=== PATIENT | male | born 1945 | race Caucasian/White ===

== ENCOUNTER 2019-04-07 09:32 | Outpatient (CLI) | payer MEDICARE, OTHER, SELFPAY ==
[2019-04-07 09:58] LABS: Basophils % 0.3 %; Eosinophils % 0.6 %; Hematocrit 35.3 % (42.0-52.0); Hemoglobin 11.4 g/dL (11.7-16.6); Lymphocytes # 1.1 10^3/uL (0.8-4.8); Lymphocytes % 15.6 %; Mean Corpuscular HGB Conc 32.3 g/dL (30.0-36.0); Mean Corpuscular Hemoglobin 29.2 pg (28.0-34.0); Mean Corpuscular Volume 90.3 fL (80-94); Mean Platelet Volume 8.7 fL (7.4-10.4); Monocytes # 0.7 10^3/uL (0.2-0.9); Monocytes % 9.1 %; Neutrophils # 5.4 10^3/uL (1.8-7.7); Neutrophils % 74.1 %; Nucleated Red Blood Cells % 0 %; Platelet Count 308 10^3/cmm (130-400); Red Blood Count 3.91 10^6/uL (4.1-5.3); Red Cell Distribution Width 11.9 % (12.1-15.1); White Blood Count 7.2 10^3/uL (4.0-10.0)
[2019-04-07 14:03] LABS: Vitamin B12 535 pg/mL (232-1245)
[2019-04-07 14:14] LABS: Folate Level 17.1 ng/mL (4.5-32.2)
== END 2019-04-07 09:33 | disposition home or self-care (01) ==
LOC: ONCMED 09:37
PROVIDERS: Family Provider Family Medicine; PCP Family Medicine; Referring Provider Family Medicine; Visit Provider Internal Medicine Hematology & Oncology
DX: D50.9 Iron deficiency anemia, unspecified (principal); I49.9 Cardiac arrhythmia, unspecified; Z79.01 Long term (current) use of anticoagulants
CPT/HCPCS: 82607; 82746; 85025; 99204

== ENCOUNTER 2019-04-21 05:45 | Outpatient (RCR) | payer MEDICARE, OTHER, SELFPAY | END 2019-05-08 23:59 | disposition home or self-care (01) | LOC: ONCMED 05:45 | PROVIDERS: Family Provider Family Medicine; PCP Family Medicine; Visit Provider Internal Medicine Hematology & Oncology | DX: D50.9 Iron deficiency anemia, unspecified (principal) | CPT/HCPCS: 96365; J1439 ==

== ENCOUNTER 2019-05-21 05:43 | Outpatient (RCR) | payer MEDICARE, OTHER, SELFPAY ==
[2019-05-19 11:01] LABS: Basophils % 0.1 %; Eosinophils # 0.1 10^3/uL (0.0-0.8); Eosinophils % 0.9 %; Hemoglobin 12.3 g/dL (11.7-16.6); Lymphocytes # 1.2 10^3/uL (0.8-4.8); Lymphocytes % 18.2 %; Mean Corpuscular HGB Conc 32.4 g/dL (30.0-36.0); Mean Corpuscular Volume 95.7 fL (80-94); Mean Platelet Volume 8.8 fL (7.4-10.4); Monocytes # 0.6 10^3/uL (0.2-0.9); Monocytes % 9.1 %; Neutrophils # 4.9 10^3/uL (1.8-7.7); Neutrophils % 71.6 %; Nucleated Red Blood Cells % 0 %; Platelet Count 316 10^3/cmm (130-400); Red Blood Count 3.97 10^6/uL (4.1-5.3); Red Cell Distribution Width 12.9 % (12.1-15.1); White Blood Count 6.8 10^3/uL (4.0-10.0)
[2019-05-19 11:16] LABS: Ferritin 868 ng/mL (30-400); Iron 69 ug/dL (59-158); Percent Saturation 37.5 % (20-50); Total Iron Binding Capacity 184 mcg/dl; Unsaturated Iron Binding 115 ug/dL (112-347)
--- NOTE | 2019-05-21 11:05 | ONC FU_ITS ---
Dr. Evans follow up note Patient: Omar Francois Unit #: [id number]: 1945 Dicatated By: Sanchez Evans M.D.Date of Visit:May 21, 2019 Onc Med Follow-up/Prog Note History of Present Illness: Mr. Omar Francois, is a 73-year-old gentleman with history of borderline anemia for 3-4 years, never required blood transfusion but he was started on oral iron about years ago, as per patient, his colonoscopy and EGD done in 2016 was unremarkable. He has been tolerate oral iron well but without normalization of his hemoglobin. As per patient, labs done on 03/17/2019 showed white blood count 7.3 hemoglobin 11.2 crit 33.2 platelets 344,000 MCV 88.1, compared to hemoglobin 11.7 g earlier , he was advised to increase his iron supplements to twice a day instead of once a day.as his iron was 38 normal being 50-180, iron saturation was 16% normal being 20-48% but ferritin was 302. Patient is on anticoagulation for cardiac arrhythmia more than 2 years now. Denies any melena or hematochezia but darker stools probably due to iron supplements. Denies any hemoptysis or hematemesis, denies any heartburn indigestion denies any chest pain or palpitation. Denies any weight loss, denies any jaundice denies any hematuria or dysuria. Denies any peripheral lymphadenopathy denies any night sweats, or recurrent fever. Came for follow-up, denies any specific complaint, more energetic since iron infusion, no shortness of breath no fever no chills, no palpitation no diarrhea constipation. Tolerated Injectafer well. Medications: amLODIPine Besylate 1 Tablet (of 2.5 mg) Oral daily, Eliquis 1 Tablet (of 5 mg) Oral b.i.d., Famotidine 1 Tablet (of 20 mg) Oral daily, Metoprolol Tartrate 1 Tablet (of 25 mg) Oral daily, Multivitamin Adult 1 Tablet Oral daily, Telmisartan 1 Tablet (of 40 mg) Oral daily Allergies: No Known Allergies. Review of Systems: Review of Systems is not available for this patient. Vital Signs: Performed on May 21, 2019 10:45 Height - 72.00 in Weight - 167.8 lbs (HIGH) BSA - 1.98 sq.m BMI - 22.76 Temperature - 97.4 F (LOW) Pulse - 74 /min Respiration - 18 /min BP - 114/70 mm(hg) O2 Sat - 100 % Pain - 0 Performance Status: 0 - Fully active, able to carry on all predisease activities without restrictions. (ECOG) Physical Examination: ENMT - No oral exudates, ulcers, masses, thrush or mucositis. Oropharynx clear. Tongue normal, Respiratory - Lungs are clear to auscultation without rhonchi or wheezing, Cardiovascular - Regular rate and rhythm of heart, Abdomen - Non-tender, non-distended, Good bowel sounds. No guarding or rebound tenderness. No pulsatile masses, Extremities - no edema. Lab/Imaging: Test performed on Apr 07, 2019 09:45 Vitamin B12 535 pg/mL WBC 7.2 10 3/uL RBC 3.91 10 6/uL HGB 11.4 g/dL HCT 35.3 % MCV 90.3 fL MCH 29.2 pg MCHC 32.3 g/dL RDW 11.9 % Platelet Count 308 10 3/cmm MPV 8.7 fL Neutrophils 5.4 10 3/uL Lymphocytes 1.1 10 3/uL Monocytes 0.7 10 3/uL Eosinophils 0.0 10 3/uL Basophils 0.0 10 3/uL Neutrophil % 74.1 % Lymphocyte % 15.6 % Monocyte % 9.1 % Eosinophil % 0.6 % Basophils % 0.3 % Impression: Iron deficiency anemia, etiology could be multifactorial including chronic blood loss especially on chronic anticoagulation, his EGD and colonoscopy was normal in 2017 so source could be small bowel, considering his age small bowel AVMs is a common finding. Other possibility could be iron malabsorption as patient is on oral iron for more than one year without normalization of iron stores. Cardiac arrhythmia on anticoagulation Plan: Discussed with patient regarding his labs white blood count 8.8 hemoglobin 12.3 crit 38 platelets 316,000 iron saturation 37.5 ferritin 868, iron 69, TIBC 184. Clinically, patient is doing well, more energetic since Injectafer infusion, responded very well,as his follow-up lab shows normalization of hemoglobin and improvement in iron stores. At this point we'll continue to monitor she'll return to clinic in 2 months with CBC and iron studies Signed By: Sanchez Evans M.D. <<Signature on File>>
== END 2019-06-08 23:59 | disposition home or self-care (01) ==
LOC: ONCMED 05:43
PROVIDERS: Family Provider Family Medicine; PCP Family Medicine; Visit Provider Internal Medicine Hematology & Oncology
DX: D50.9 Iron deficiency anemia, unspecified (principal); I49.9 Cardiac arrhythmia, unspecified; Z79.01 Long term (current) use of anticoagulants; Z79.899 Other long term (current) drug therapy
CPT/HCPCS: 82728; 83540; 83550; 85025; G0463

== ENCOUNTER 2019-07-21 10:28 | Outpatient (CLI) | payer MEDICARE, OTHER, SELFPAY ==
[2019-07-21 11:14] LABS: Ferritin 830 ng/mL (30-400); Iron 96 ug/dL (59-158); Percent Saturation 52.7 % (20-50); Total Iron Binding Capacity 182 mcg/dl; Unsaturated Iron Binding 86 ug/dL (112-347)
[2019-07-21 11:21] LABS: Basophils % 0.4 %; Eosinophils # 0.1 10^3/uL (0.0-0.8); Eosinophils % 0.6 %; Hematocrit 38.6 % (42.0-52.0); Hemoglobin 12.5 g/dL (11.7-16.6); Lymphocytes # 1.6 10^3/uL (0.8-4.8); Lymphocytes % 18.8 %; Mean Corpuscular HGB Conc 32.4 g/dL (30.0-36.0); Mean Corpuscular Hemoglobin 31.6 pg (28.0-34.0); Mean Corpuscular Volume 97.7 fL (80-94); Mean Platelet Volume 8.8 fL (7.4-10.4); Monocytes # 0.9 10^3/uL (0.2-0.9); Neutrophils # 5.9 10^3/uL (1.8-7.7); Neutrophils % 69.8 %; Nucleated Red Blood Cells % 0 %; Platelet Count 302 10^3/cmm (130-400); Red Blood Count 3.95 10^6/uL (4.1-5.3); Red Cell Distribution Width 11.9 % (12.1-15.1); White Blood Count 8.5 10^3/uL (4.0-10.0)
== END 2019-07-21 10:29 | disposition home or self-care (01) ==
LOC: ONCMED 10:31
PROVIDERS: PCP Family Medicine; Visit Provider Internal Medicine Hematology & Oncology
DX: D50.9 Iron deficiency anemia, unspecified (principal)
CPT/HCPCS: 82728; 83540; 83550; 85025

== ENCOUNTER 2019-07-23 09:48 | Outpatient (CLI) | payer MEDICARE, OTHER, SELFPAY ==
--- NOTE | 2019-08-23 16:08 | ONC FU_ITS ---
Dr. Evans follow up note Patient: Omar Francois Unit #: [id number]: 1945 Dicatated By: Sanchez Evans M.D.Date of Visit:July 23, 2019 Onc Med Follow-up/Prog Note History of Present Illness: Mr. Omar Francois, is a 73-year-old gentleman with history of borderline anemia for 3-4 years, never required blood transfusion but he was started on oral iron about years ago, as per patient, his colonoscopy and EGD done in 2016 was unremarkable. He has been tolerate oral iron well but without normalization of his hemoglobin. As per patient, labs done on 03/17/2019 showed white blood count 7.3 hemoglobin 11.2 crit 33.2 platelets 344,000 MCV 88.1, compared to hemoglobin 11.7 g earlier , he was advised to increase his iron supplements to twice a day instead of once a day.as his iron was 38 normal being 50-180, iron saturation was 16% normal being 20-48% but ferritin was 302. Patient is on anticoagulation for cardiac arrhythmia more than 2 years now. Denies any melena or hematochezia but darker stools probably due to iron supplements. Denies any hemoptysis or hematemesis, denies any heartburn indigestion denies any chest pain or palpitation. Denies any weight loss, denies any jaundice denies any hematuria or dysuria. Denies any peripheral lymphadenopathy denies any night sweats, or recurrent fever. Came for follow-up, denies any specific complaints, no fever or chills, no nausea or vomiting, no diarrhea constipation, no melena or hematochezia. No shortness of breath or palpitation. Medications: amLODIPine Besylate 1 Tablet (of 2.5 mg) Oral daily, Eliquis 1 Tablet (of 5 mg) Oral b.i.d., Famotidine 1 Tablet (of 20 mg) Oral daily, Metoprolol Tartrate 1 Tablet (of 25 mg) Oral daily, Multivitamin Adult 1 Tablet Oral daily, Telmisartan 1 Tablet (of 40 mg) Oral daily Allergies: No Known Allergies. Review of Systems: Review of Systems is not available for this patient. Vital Signs: Performed on July 23, 2019 10:15 Height - 72.00 in Weight - 168.6 lbs (HIGH) BSA - 1.98 sq.m BMI - 22.87 Temperature - 97.9 F (LOW) Pulse - 70 /min Respiration - 18 /min BP - 123/73 mm(hg) O2 Sat - 98 % Pain - 0 Performance Status: 0 - Fully active, able to carry on all predisease activities without restrictions. (ECOG) Physical Examination: ENMT - no mouth sores,, Respiratory - clear to auscultation, Cardiovascular - Regular rate and rhythm of heart, Abdomen - soft, bowel sounds present, Extremities - no edema or rash. Lab/Imaging: Test performed on July 21, 2019 10:39 Ferritin 830 ng/mL Iron 96 mcg/dL Iron Binding Capacity (TIBC) 182 mcg/dl % Iron Saturation 52.7 % UIBC 86 mcg/dL WBC 8.5 10 3/uL RBC 3.95 10 6/uL HGB 12.5 g/dL HCT 38.6 % MCV 97.7 fL MCH 31.6 pg MCHC 32.4 g/dL RDW 11.9 % Platelet Count 302 10 3/cmm MPV 8.8 fL Neutrophils 5.9 10 3/uL Lymphocytes 1.6 10 3/uL Monocytes 0.9 10 3/uL Eosinophils 0.1 10 3/uL Basophils 0.0 10 3/uL Neutrophil % 69.8 % Lymphocyte % 18.8 % Monocyte % 10.0 % Eosinophil % 0.6 % Basophils % 0.4 % Test performed on Apr 07, 2019 09:45 Vitamin B12 535 pg/mL Impression: Iron deficiency anemia, etiology could be multifactorial including chronic blood loss especially on chronic anticoagulation, his EGD and colonoscopy was normal in 2017 so source could be small bowel, considering his age small bowel AVMs is a common finding. Other possibility could be iron malabsorption as patient is on oral iron for more than one year without normalization of iron stores. Cardiac arrhythmia on anticoagulation Plan: Discussed with patient regarding his labs white blood count 8.5 and on 12.5 crit 38.6 platelets 302,000 iron saturation 52.7 ferritin 830, iron 96 Clinically, patient is doing well with no new signs symptoms, his follow-up lab shows hemoglobin and iron stores within normal range, we'll continue to monitor and return to clinic in 3 months with CBC and iron studies if hemoglobin and iron stores remains within normal range then subsequently we'll see him on as-needed basis. Signed By: Sanchez Evans M.D. <<Signature on File>>
== END 2019-07-23 09:49 | disposition home or self-care (01) ==
PROVIDERS: PCP Family Medicine; Visit Provider Internal Medicine Hematology & Oncology
DX: D50.9 Iron deficiency anemia, unspecified (principal); I49.9 Cardiac arrhythmia, unspecified; Z79.01 Long term (current) use of anticoagulants
CPT/HCPCS: G0463

== ENCOUNTER 2019-10-22 08:47 | Outpatient (CLI) | payer MEDICARE, OTHER, SELFPAY ==
[2019-10-22 09:08] LABS: Basophils % 0.2 %; Eosinophils # 0.1 10^3/uL (0.0-0.8); Eosinophils % 0.6 %; Hematocrit 36.3 % (42.0-52.0); Hemoglobin 12.1 g/dL (11.7-16.6); Lymphocytes # 1.7 10^3/uL (0.8-4.8); Lymphocytes % 18.7 %; Mean Corpuscular HGB Conc 33.3 g/dL (30.0-36.0); Mean Corpuscular Hemoglobin 31.8 pg (28.0-34.0); Mean Corpuscular Volume 95.3 fL (80-94); Mean Platelet Volume 8.6 fL (7.4-10.4); Monocytes # 0.6 10^3/uL (0.2-0.9); Monocytes % 6.5 %; Neutrophils # 6.68 10^3/uL (1.8-7.7); Neutrophils % 73.7 %; Nucleated Red Blood Cells % 0 %; Platelet Count 342 10^3/cmm (130-400); Red Blood Count 3.81 10^6/uL (4.1-5.3); Red Cell Distribution Width 11.4 % (12.1-15.1); White Blood Count 9.1 10^3/uL (4.0-10.0)
[2019-10-22 09:32] LABS: Ferritin 974 ng/mL (30-400); Iron 64 ug/dL (59-158); Percent Saturation 30.7 % (20-50); Total Iron Binding Capacity 208 mcg/dl; Unsaturated Iron Binding 144 ug/dL (112-347)
[2019-10-22 09:48] LABS: Vitamin B12 874 pg/mL (232-1245)
[2019-10-22 10:20] LABS: Folate Level > 20.0 ng/mL (4.5-32.2)
--- NOTE | 2019-10-25 09:47 | ONC FU_ITS ---
Dr. Evans follow up note Patient: Omar Francois Unit #: [id number]: 1945 Dicatated By: Sanchez Evans M.D.Date of Visit:Oct 22, 2019 Onc Med Follow-up/Prog Note History of Present Illness: Mr. Omar Francois, is a 73-year-old gentleman with history of borderline anemia for 3-4 years, never required blood transfusion but he was started on oral iron about years ago, as per patient, his colonoscopy and EGD done in 2016 was unremarkable. He has been tolerate oral iron well but without normalization of his hemoglobin. As per patient, labs done on 03/17/2019 showed white blood count 7.3 hemoglobin 11.2 crit 33.2 platelets 344,000 MCV 88.1, compared to hemoglobin 11.7 g earlier , he was advised to increase his iron supplements to twice a day instead of once a day.as his iron was 38 normal being 50-180, iron saturation was 16% normal being 20-48% but ferritin was 302. Patient is on anticoagulation for cardiac arrhythmia more than 2 years now. Came for follow-up, denies any specific complaints, no fever chills, no nausea or vomiting, no diarrhea or constipation, no palpitation or shortness of breath, no melena or hematochezia, overall feeling well Medications: Eliquis 1 Tablet (of 5 mg) Oral b.i.d., Famotidine 1 Tablet (of 20 mg) Oral daily, Metoprolol Tartrate 1 Tablet (of 25 mg) Oral daily, Multivitamin Adult 1 Tablet Oral daily Allergies: No Known Allergies. Review of Systems: Constitutional - Appetite is good but weight has decreased. No fever, chills, hot flashes, or night sweats. Energy level is poor, ENMT - No sinus congestion/drainage. No mouth sores. No sore throat or difficulty swallowing, Hematologic/Lymphatic - Pt reports that he bruises easily, Respiratory - No shortness of breath. No cough. No pleuritic pain or hemoptysis, Cardiovascular - No angina pain. No palpitations, Gastrointestinal - No nausea or vomiting. No heartburn or acid reflux. No diarrhea or constipation. No blood in the stool or black stools, Genitourinary (M) - No dysuria or hematuria. No urinary frequency. No urgency or incontinence, Musculoskeletal - No joint or bone pain, Neurologic - No headache or dizziness. No numbness/paresthesias or other focal neurologic symptoms, Psychiatric - No anxiety or depression. No insomnia. Vital Signs: Performed on Oct 22, 2019 10:31 Height - 72.00 in Weight - 169.8 lbs (HIGH) BSA - 1.99 sq.m BMI - 23.03 Temperature - 98.1 F (LOW) Pulse - 66 /min Respiration - 20 /min BP - 143/80 mm(hg) (HIGH) O2 Sat - 99 % Pain - 0 Performance Status: 0 - Fully active, able to carry on all predisease activities without restrictions. (ECOG) Physical Examination: ENMT - No mouth sores, no thrush, no jaundice, Respiratory - Lungs are clear, Cardiovascular - Regular rate and rhythm of heart, Abdomen - Soft, bowel sounds present, Extremities - No visible edema. Lab/Imaging: Test performed on July 21, 2019 10:39 Ferritin 830 ng/mL Iron 96 mcg/dL Iron Binding Capacity (TIBC) 182 mcg/dl % Iron Saturation 52.7 % UIBC 86 mcg/dL WBC 8.5 10 3/uL RBC 3.95 10 6/uL HGB 12.5 g/dL HCT 38.6 % MCV 97.7 fL MCH 31.6 pg MCHC 32.4 g/dL RDW 11.9 % Platelet Count 302 10 3/cmm MPV 8.8 fL Neutrophils 5.9 10 3/uL Lymphocytes 1.6 10 3/uL Monocytes 0.9 10 3/uL Eosinophils 0.1 10 3/uL Basophils 0.0 10 3/uL Neutrophil % 69.8 % Lymphocyte % 18.8 % Monocyte % 10.0 % Eosinophil % 0.6 % Basophils % 0.4 % Impression: Iron deficiency anemia, etiology could be multifactorial including chronic blood loss especially on chronic anticoagulation, his EGD and colonoscopy was normal in 2017 so source could be small bowel, considering his age small bowel AVMs is a common finding. Other possibility could be iron malabsorption as patient is on oral iron for more than one year without normalization of iron stores. Status post Injectafer 750 mg IV weekly x2 in April 2019 With excellent response, normalization of hemoglobin and iron stores Cardiac arrhythmia on anticoagulation Plan: Discussed with patient regarding his labs white blood count 9.1 hemoglobin 12.1 hematocrit 36.3 platelets 342,000 iron saturation 30.7 ferritin 974 iron 64 B12 874 Clinically, patient is doing well with no new signs symptoms, follow-up labs shows hemoglobin still in the normal range as well as iron stores, no further work-up, will see him on as-needed basis Signed By: Sanchez Evans M.D. <<Signature on File>>
== END 2019-10-22 08:48 | disposition home or self-care (01) ==
LOC: ONCMED 08:49
PROVIDERS: PCP Family Medicine; Visit Provider Internal Medicine Hematology & Oncology
DX: D50.9 Iron deficiency anemia, unspecified (principal); Z79.01 Long term (current) use of anticoagulants; I49.9 Cardiac arrhythmia, unspecified
CPT/HCPCS: 82607; 82728; 82746; 83540; 83550; 85025; G0463

== ENCOUNTER → 2021-03-01 11:25 | Outpatient (BNVA) | payer MEDICARE, OTHER, SELFPAY | PROVIDERS: PCP Family Medicine; Visit Provider Otolaryngology | DX: Z01.812 Encounter for preprocedural laboratory examination (principal) | CPT/HCPCS: 87635 ==

== ENCOUNTER 2021-03-07 07:41 | Day surgery (SDC) | payer MEDICARE, OTHER, SELFPAY ==
[2021-03-06 10:02] VITALS: BMI 23.0
[2021-03-07] VITALS (8 sets, daily range): BP systolic 139–179; BP diastolic 82–106; PULSE 68–81; RESP 12–18; TEMP 36.1–36.8; O2SAT 94–99
--- NOTE | 2021-03-07 08:07 | ECG_ITS ---
[facility] Test Date: 2021-03-07 Pat Name: Omar Francois Department: Room: Gender: Male Cig[employer]cher: : 1945 Requested By: Bryce Wilcox Order Number: [id number] Rickie MD: Melchor Pepe M.D. Measurements Intervals [place] Rate: 64 P: 61 [place]: 164 QRS: 48 QRSD: 106 T: 15 QT: 398 QTc: 413 Interpretive Statements SINUS RHYTHM Compared to ECG 06/01/2017 12:46:09 Prolonged QT interval no longer present Electronically Signed On 03-07-2021 20:47:37 [employer]PER[employer] by Melchor Pepe M.D. [id number]
[2021-03-07] MEDS: sodium chloride 0.9% 1,000 ML 30 ML IV (08:15)
--- NOTE | 2021-03-07 08:19 | W.PM.OPSUD ---
Surgery/Procedure H&P Update DATE OF PROCEDURE: March 07, 2021 DATE H&P PERFORMED: 02/22/21 H&P UPDATE INFORMATION: I have reviewed H&P completed within last 30 days, I have examined patient prior to procedure and No changes to prior documentation PREOP DIAGNOSIS: Right palatal lesion/mass PLANNED PROCEDURE: Operation Date: 03/07/21 09:15 Proposed Procedures p Excision of Right Palatal Lesion w/ Frozen Section 33113 R22.0(Right) - Jack Trevino MD
--- NOTE | 2021-03-07 08:34 | ANES.PREANE2 ---
Pre-Anesthetic Assessment Pre-Anesthetic Assessment: Height/Weight: Height 1.83 m Weight 77.111 kg Temp Pulse Resp BP Pulse Ox 98.3 F 70 12 159/92 99 03/07/21 08:04 03/07/21 08:04 03/07/21 08:04 03/07/21 08:04 03/07/21 08:04 Preop Diagnosis: Right palatal lesion/mass Proposed Procedure: Operation Date: 03/07/21 09:15 Proposed Procedures p Excision of Right Palatal Lesion w/ Frozen Section 03363 R22.0(Right) - Jack Trevino MD Was Beta Jia taken within 24 hours: Yes Was Clonidine taken within 24 hours: N/A Last intake: Intake Last Liquid Date 03/06/21 Last Liquid Time 21:00 Last Solid Date 03/06/21 Last Solid Time 18:00 Social: Social History: No alcohol and No tobacco Exam: Pre-Anes Outpt Exam: alert, oriented x 3, clear to auscultation bilaterally and regular rate & rhythm Airway: Submandibular: WNL Cervical ROM: WNL MP: 3 Dentition: Chipped CV/HEM: CV/HEM: Afib (A.flutter--s/p ablation) and HTN Anesthetic Plan: ASA status: 3 Anesthesia: General Risk of > 500 ml blood loss (7ml/kg in children): No Meds/Allergies Current Medications: Current Medications Generic Name Dose Route Start Last Admin Trade Name Freq PRN Reason Stop Dose Admin Sodium Chloride 1,000 mls @ 30 ml s/hr 03/07/21 08:00 03/07/21 08:15 Sodium Chloride 0.9% IV 03/08/21 07:59 30 mls/hr .Q24H GATO Administration PFSH Anesthesia PFSH: Medical History Atrial flutter Diastolic heart failure History of nonmelanoma skin cancer Surgical History History of cardiac radiofrequency ablation Family History Father Cancer Stroke Mother Cancer Brother CAD (coronary artery disease) Hypertension Sister Stroke Data Anesthesia Cardiac Studies: No Data to Display
--- NOTE | 2021-03-07 09:36 | P.OP_ITS ---
Operative Report Date of procedure: March 07, 2021 Pre-op Diagnosis: Right palatal lesion/mass Post-op diagnosis: same Post-op Findings: Raised inflamed 2 to 3 mm mass on the palate adjacent to the third molar on the right side. 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 Anesthesia: General and Local Estimated blood loss (mL): 5 Complications: No complications encountered Findings: 75-year-old male patient has had a lesion on his palate adjacent to the third molar on the right side. This has stayed as a raised papule in spite of medical therapy and time. Because of the persistence he is being brought to the operating room to undergo excision for biopsy purposes. The procedure its risks and complications were explained in detail. The risks include bleeding infection numbness scarring swelling bruising recurrence need for additional treatment and anesthetic risks such as heart attack or stroke or not surviving the surgery. With these things understood informed consent was granted. This was also witnessed. Condition: stable Disposition: PACU Brief History: 75-year-old male patient with right palatal papule consistent with minor salivary gland inflammation but possible malignancy due to its failure to improve with medications and antibiotics and time. Is to undergo excision for biopsy purposes. Procedure: Description of procedure: The patient was placed on the operating table in the supine position. Adequate general endotracheal tube anesthesia was obtained. He was given Ancef IV for prophylaxis. A timeout was accomplished identifying the patient date of plan procedure allergies fire risk and medications given. With all in agreement the procedure continued. Due to an extremely stiff neck the patient was placed in a headdown position to give visualization to this area. A mouth business banking representative was placed and this gave access and visualization to the area in question. The papule measures 2 to 3 mm adjacent to the upper third molar. The greater palatine canal was infiltrated with local as was the surrounding area. A total of 3.4 mL of 2% Xylocaine with 1 100,000 epinephrine was utilized. Approximately 10 minutes were then allowed to pass for the local to take place and for the epinephrine to take its effect. Then a fusiform excision pattern was created with a 15 blade carrying it down to the submucosal tissue and incorporating any minor glands attached to the underside. This was sent to pathology for frozen section. While this was pending pressure was applied for several minutes and then bipolar cautery was used to control bleeding. The pathology returned as chronic and acute inflammation with no evidence of malignancy. At this point the area was suctioned clean. The patient was returned to the upright position. Drapes that were applied at the beginning of the procedure were removed. Patient tolerated the procedure well and was taken to recovery where he arrived in stable condition.
--- NOTE | 2021-03-07 09:48 | PC.NURSE ---
pt arrived in recovery awake and sedated responds to verbal ques no airway present breating room air pt mass removed area was cauterized with no bleeding present so sutures present
--- NOTE | 2021-03-07 15:03 | ANE.PACU2 ---
Inpatient post-anesthesia follow up: Airway intact: Yes Vital signs: Temperature 97.4 F Pulse Rate 68 Respiratory Rate 14 Blood Pressure 152/96 Pulse Oximetry 97 Oxygen Delivery Me thod Room Air Oxygen Flow Rate Fraction of Inspir ed Oxygen Hydration adequate: Yes Nausea and vomiting: No Pain level: 1 Mental status: Baseline
== END 2021-03-07 10:42 | disposition home or self-care (01) ==
PROVIDERS: PCP Family Medicine; Visit Provider Otolaryngology
PROC: (CPT 42104; principal; 2021-03-07 09:05)
DX: K13.79 Other lesions of oral mucosa (principal); I48.91 Unspecified atrial fibrillation; I11.0 Hypertensive heart disease with heart failure; I50.30 Unspecified diastolic (congestive) heart failure
CPT/HCPCS: 42104; 88304; 88331; 93005; 96365; J0690; J1100; J2405; J2704; J2710; J3010; J3490; J7030

== ENCOUNTER → 2021-07-17 14:42 | Outpatient (BNVA) | payer MEDICARE, OTHER, SELFPAY | PROVIDERS: PCP Family Medicine; Visit Provider Internal Medicine Cardiovascular Disease | DX: I11.0 Hypertensive heart disease with heart failure (principal); I50.32 Chronic diastolic (congestive) heart failure; I48.3 Typical atrial flutter | CPT/HCPCS: 99214 ==

== ENCOUNTER → 2021-08-15 11:16 | Outpatient (BNVA) | payer MEDICARE, OTHER, SELFPAY | PROVIDERS: PCP Family Medicine; Visit Provider Family Medicine | DX: D64.9 Anemia, unspecified (principal); I10 Essential (primary) hypertension; Z51.81 Encounter for therapeutic drug level monitoring; E11.9 Type 2 diabetes mellitus without complications; R79.89 Other specified abnormal findings of blood chemistry | CPT/HCPCS: 80053; 82728; 83036; 83550; 84439; 84443; 84466; 85025 ==

== ENCOUNTER → 2022-02-05 13:34 | Outpatient (BNVA) | payer MEDICARE, OTHER, SELFPAY | PROVIDERS: PCP Family Medicine; Visit Provider Family Medicine | DX: D64.9 Anemia, unspecified (principal); Z51.81 Encounter for therapeutic drug level monitoring | CPT/HCPCS: 82728; 83550; 84466; 85025 ==

== ENCOUNTER → 2022-07-15 13:48 | Outpatient (BNVA) | payer MEDICARE, OTHER, SELFPAY | PROVIDERS: PCP Family Medicine; Visit Provider Internal Medicine Cardiovascular Disease | DX: I48.3 Typical atrial flutter (principal); I11.0 Hypertensive heart disease with heart failure; I50.32 Chronic diastolic (congestive) heart failure | CPT/HCPCS: 99214 ==

== ENCOUNTER → 2022-09-03 13:34 | Outpatient (BNVA) | payer MEDICARE, OTHER, SELFPAY | PROVIDERS: PCP Family Medicine; Visit Provider Family Medicine | DX: D64.9 Anemia, unspecified (principal); I10 Essential (primary) hypertension; R73.09 Other abnormal glucose; I95.9 Hypotension, unspecified; Z51.81 Encounter for therapeutic drug level monitoring; R51.9 Headache, unspecified; R73.03 Prediabetes | CPT/HCPCS: 80053; 82728; 83036; 83550; 84466; 85025; 85651 ==

== ENCOUNTER → 2022-09-20 14:16 | Outpatient (BNVA) | payer MEDICARE, OTHER, SELFPAY | PROVIDERS: PCP Family Medicine; Visit Provider Surgery | DX: R70.0 Elevated erythrocyte sedimentation rate (principal); R51.9 Headache, unspecified; Z86.010 Personal history of colon polyps | CPT/HCPCS: 99203 ==

== ENCOUNTER 2022-10-28 14:06 | Outpatient (CLI) | payer MEDICARE, OTHER, SELFPAY ==
--- NOTE | 2022-10-28 14:18 | USCV_ITS ---
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 Mild atheromatous plaque right carotid bulb/ICA. Left ICA stenosis <50%. Mild atheromatous plaque left carotid bulb/ICA. Normal antegrade Doppler flow noted in the right vertebral artery. Normal antegrade Doppler flow noted in the left vertebral artery. Robert Gil MD (Electronically Signed) Final Date: 28 October 2022 15:36 S
== END 2022-10-28 14:07 | disposition home or self-care (01) ==
LOC: RAD 14:08
PROVIDERS: PCP Family Medicine; Visit Provider Surgery
DX: M31.6 Other giant cell arteritis (principal); I65.23 Occlusion and stenosis of bilateral carotid arteries
CPT/HCPCS: 93880

== ENCOUNTER → 2022-12-09 11:20 | Outpatient (BNVA) | payer MEDICARE, OTHER, SELFPAY | PROVIDERS: PCP Family Medicine; Visit Provider Family Medicine | DX: R73.09 Other abnormal glucose (principal); R73.03 Prediabetes; I95.9 Hypotension, unspecified; D64.9 Anemia, unspecified; I50.32 Chronic diastolic (congestive) heart failure | CPT/HCPCS: 80053; 82728; 83036; 83550; 84466; 85025; 85651 ==

== ENCOUNTER → 2023-01-22 10:32 | Outpatient (BNVA) | payer MEDICARE, OTHER, SELFPAY | PROVIDERS: PCP Family Medicine; Visit Provider Family Medicine | DX: R70.0 Elevated erythrocyte sedimentation rate (principal); R51.9 Headache, unspecified; D64.9 Anemia, unspecified; R73.03 Prediabetes | CPT/HCPCS: 83036; 83550; 84466; 85651; 86141 ==

== ENCOUNTER → 2023-01-27 13:43 | Outpatient (BNVA) | payer MEDICARE, OTHER, SELFPAY | PROVIDERS: PCP Family Medicine; Visit Provider Internal Medicine Cardiovascular Disease | DX: I11.0 Hypertensive heart disease with heart failure (principal); I50.32 Chronic diastolic (congestive) heart failure; I48.3 Typical atrial flutter; D64.9 Anemia, unspecified; M31.6 Other giant cell arteritis | CPT/HCPCS: 99214 ==

== ENCOUNTER → 2023-02-24 10:30 | Outpatient (BNVA) | payer MEDICARE, OTHER, SELFPAY | PROVIDERS: PCP Family Medicine; Visit Provider Family Medicine | DX: Z51.81 Encounter for therapeutic drug level monitoring (principal); D64.9 Anemia, unspecified | CPT/HCPCS: 83540; 85025 ==

== ENCOUNTER → 2023-05-27 10:17 | Outpatient (BNVA) | payer MEDICARE, OTHER, SELFPAY | PROVIDERS: PCP Family Medicine; Visit Provider Family Medicine | DX: D64.9 Anemia, unspecified (principal) | CPT/HCPCS: 83540 ==

== ENCOUNTER → 2023-07-30 15:17 | Outpatient (BNVA) | payer MEDICARE, OTHER, SELFPAY | PROVIDERS: PCP Family Medicine; Visit Provider Internal Medicine Cardiovascular Disease | DX: I11.0 Hypertensive heart disease with heart failure (principal); I50.32 Chronic diastolic (congestive) heart failure; I48.3 Typical atrial flutter; R73.03 Prediabetes | CPT/HCPCS: 99214 ==

== ENCOUNTER → 2023-08-27 08:31 | Outpatient (BNVA) | payer MEDICARE, OTHER, SELFPAY | PROVIDERS: PCP Family Medicine; Visit Provider Family Medicine | DX: D64.9 Anemia, unspecified (principal); Z51.81 Encounter for therapeutic drug level monitoring | CPT/HCPCS: 80053; 83550; 85025 ==

== ENCOUNTER → 2023-09-25 13:36 | Outpatient (BNVA) | payer MEDICARE, OTHER, SELFPAY | PROVIDERS: PCP Family Medicine; Visit Provider Dermatology | DX: D48.5 Neoplasm of uncertain behavior of skin (principal); L57.0 Actinic keratosis; L85.3 Xerosis cutis; L82.1 Other seborrheic keratosis; Z85.828 Personal history of other malignant neoplasm of skin | CPT/HCPCS: 11102; 17000; 99214 ==

== ENCOUNTER → 2023-10-14 09:08 | Outpatient (BNVA) | payer MEDICARE, OTHER, SELFPAY | PROVIDERS: PCP Family Medicine; Visit Provider Dermatology | DX: C44.311 Basal cell carcinoma of skin of nose (principal); L30.0 Nummular dermatitis | CPT/HCPCS: 17281; 99214 ==

== ENCOUNTER → 2023-12-23 11:13 | Outpatient (BNVA) | payer MEDICARE, OTHER, SELFPAY | PROVIDERS: PCP Family Medicine; Visit Provider Family Medicine | DX: Z51.81 Encounter for therapeutic drug level monitoring (principal); E61.1 Iron deficiency; D64.9 Anemia, unspecified | CPT/HCPCS: 82728; 83550; 85025 ==

== ENCOUNTER → 2024-01-13 14:34 | Outpatient (BNVA) | payer MEDICARE, OTHER, SELFPAY | PROVIDERS: PCP Family Medicine; Visit Provider Dermatology | DX: L30.0 Nummular dermatitis (principal); L82.1 Other seborrheic keratosis; B35.1 Tinea unguium; L57.0 Actinic keratosis; Z85.828 Personal history of other malignant neoplasm of skin | CPT/HCPCS: 17000; 99214 ==

== ENCOUNTER → 2024-01-22 14:50 | Outpatient (BNVA) | payer MEDICARE, OTHER, SELFPAY | PROVIDERS: PCP Family Medicine; Visit Provider Nurse Practitioner Family | DX: Z08 Encounter for follow-up examination after completed treatment for malignant neoplasm (principal); Z85.828 Personal history of other malignant neoplasm of skin; D48.5 Neoplasm of uncertain behavior of skin | CPT/HCPCS: 11102; 99213 ==

== ENCOUNTER → 2024-06-16 09:22 | Outpatient (BNVA) | payer MEDICARE, OTHER, SELFPAY | PROVIDERS: PCP Family Medicine; Visit Provider Family Medicine | DX: Z51.81 Encounter for therapeutic drug level monitoring (principal); D64.9 Anemia, unspecified; E61.1 Iron deficiency | CPT/HCPCS: 80053; 82728; 83550; 83615; 84466; 85025 ==

== ENCOUNTER → 2024-07-13 13:02 | Outpatient (BNVA) | payer MEDICARE, OTHER, SELFPAY | PROVIDERS: PCP Family Medicine; Visit Provider Dermatology | DX: L82.1 Other seborrheic keratosis (principal); L57.8 Other skin changes due to chronic exposure to nonionizing radiation; D18.01 Hemangioma of skin and subcutaneous tissue; Z08 Encounter for follow-up examination after completed treatment for malignant neoplasm; Z85.828 Personal history of other malignant neoplasm of skin; D48.5 Neoplasm of uncertain behavior of skin; L57.0 Actinic keratosis | CPT/HCPCS: 11102; 17000; 99213 ==

== ENCOUNTER → 2024-07-28 09:51 | Outpatient (BNVA) | payer MEDICARE, OTHER, SELFPAY | PROVIDERS: PCP Family Medicine; Visit Provider Internal Medicine Cardiovascular Disease | DX: I11.0 Hypertensive heart disease with heart failure (principal); I50.32 Chronic diastolic (congestive) heart failure; R73.03 Prediabetes; Z87.898 Personal history of other specified conditions | CPT/HCPCS: 99214 ==

== ENCOUNTER → 2024-12-15 10:33 | Outpatient (BNVA) | payer MEDICARE, OTHER, SELFPAY | PROVIDERS: PCP Family Medicine; Visit Provider Family Medicine | DX: D64.9 Anemia, unspecified (principal); R73.03 Prediabetes; Z51.81 Encounter for therapeutic drug level monitoring; E55.9 Vitamin D deficiency, unspecified | CPT/HCPCS: 82306; 82728; 83036; 83550; 84466; 85025 ==

== ENCOUNTER → 2024-12-22 11:46 | Outpatient (BNVA) | payer MEDICARE, OTHER, SELFPAY | PROVIDERS: PCP Family Medicine; Visit Provider Family Medicine | DX: R30.0 Dysuria (principal) | CPT/HCPCS: 81000 ==

== ENCOUNTER 2025-01-03 13:58 | Outpatient (CLI) | payer MEDICARE, OTHER, SELFPAY ==
--- NOTE | 2025-01-03 14:15 | US_ITS ---
WS: [id number] RENAL ULTRASOUND URINARY BLADDER ULTRASOUND HISTORY: Hematuria [id number] COMPARISON: None available. TECHNIQUE: 2-D and color Doppler imaging of the kidney submitted. Right kidney: 10.3 cm x 6.2 cm x 4.9 cm. Normal echogenicity with no hydronephrosis or mass. Left kidney: 10.7 cm x 4.5 cm x 4.0 cm. Normal size kidney. Complex cyst with septation inferior pole LEFT kidney. Cyst measures 2.8 x 3.0 x 2.5 cm. No increased vascularity. No additional masses. No hydronephrosis. Aorta: Atherosclerosis aorta. No aneurysm. Urinary Bladder: Minimally distended urinary bladder. Bladder is being deformed by the enlarged heterogeneous prostate. Prostate gland measures 6.5 x 5.4 x 5.6 cm. Prevoid volume: 64 mL. Post void volume: 6 mL. US/US renal BI w/PV bladder [id number] IMPRESSION: 1. Complex cyst with thin septation LEFT kidney. No increased vascularity or s olid component. No imaging follow-up necessary. 2. Enlarged prostate gland encroaching into the bladder. 3. No post void urinary bladder residual.
== END 2025-01-03 13:59 | disposition home or self-care (01) ==
LOC: RAD 13:59
PROVIDERS: PCP Family Medicine; Visit Provider Family Medicine
DX: R31.9 Hematuria, unspecified (principal)
CPT/HCPCS: 76770; 76857

== ENCOUNTER → 2025-01-17 10:07 | Outpatient (BNVA) | payer MEDICARE, OTHER, SELFPAY | PROVIDERS: PCP Family Medicine; Visit Provider Dermatology | DX: L57.8 Other skin changes due to chronic exposure to nonionizing radiation (principal); L82.1 Other seborrheic keratosis; D18.01 Hemangioma of skin and subcutaneous tissue; Z08 Encounter for follow-up examination after completed treatment for malignant neoplasm; Z85.828 Personal history of other malignant neoplasm of skin; D48.5 Neoplasm of uncertain behavior of skin; L57.0 Actinic keratosis | CPT/HCPCS: 11102; 17000; 99213 ==

== ENCOUNTER → 2025-01-20 08:18 | Outpatient (BNVA) | payer MEDICARE, OTHER, SELFPAY | PROVIDERS: PCP Family Medicine; Visit Provider Family Medicine | DX: R30.0 Dysuria (principal) | CPT/HCPCS: 81000 ==